=== PATIENT | male | born 1975 | race Caucasian/White ===

== ENCOUNTER 2025-01-15 19:03 | Inpatient (IN) | payer BC, SELFPAY ==
[2025-01-15 19:36] LABS: #Basophils 0.05 10x3/uL (0.0-0.2); #Eosinophils 0.17 10x3/uL (0.0-0.7); #Monocytes 0.30 10x3/uL (0.11-0.59); #Neutrophils 2.03 10x3/uL (1.40-6.50); %Basophils 1.1 % (0.0-1.0); %Eosinophils 3.8 % (0.0-10.0); %Lymphocytes 43.5 % (21.0-51.0); %Monocytes 6.6 % (0.0-10.0); %Neutrophils 44.8 % (42.0-75.0); Hematocrit 38.7 % (42.0-52.0); Hemoglobin 13.9 g/dL (14.0-18.0); Mean Corpuscular Hemoglobin 35.9 pg (27.0-31.0); Mean Corpuscular Volume 100.0 fL (78.0-98.0); Platelet Count 355 10x3/uL (130-400); Red Blood Cell (RBC) Count 3.87 mill/uL (4.70-6.10); White Blood Cell (WBC) Count 4.53 10x3/uL (4.8-10.8)
[2025-01-15 19:54] LABS: ALT (SGPT) 15 U/L (Less than 45); AST (SGOT) 11 U/L (11-34); Albumin 4.3 g/dL (3.1-4.5); Alkaline Phosphatase 76 U/L (40-110); Anion Gap 14 mmol/L (10-20); BUN (Urea Nitrogen) 13 mg/dL (8.9-20.6); Bilirubin, Total 0.8 mg/dL (0.3-1.2); CK (CPK) 130 U/L (30-200); Calc. Creatinine Clearance 0 mL/min (70-130); Calcium 9.4 mg/dL (7.8-10.44); Carbon Dioxide 27 mmol/L (22-29); Chloride 103 mmol/L (98-107); Globulin 2.9 g/dL (2.4-3.5); Glucose 104 mg/dL (70-105); Potassium 4.1 mmol/L (3.5-5.1); Sodium 140 mmol/L (136-145)
[2025-01-15 19:56] LABS: Fibrinogen 360.0 mg/dL (253-463); INR-International Normal Ratio 1.1; PTT 26.5 sec (22.9-36.1); Prothrombin Time 14.0 sec (12.0-14.7)
[2025-01-15] MEDS ORDERED: HYDROmorphone 0.5 MG/0.5 ML SYRINGE ONE ×2 (20:42→22:41)
[2025-01-15] MEDS ORDERED: Ondansetron PF 4 MG/2 ML Vial IVP PRN (23:00)
[2025-01-15] MEDS ORDERED: Acetaminophen 325 MG TAB PO PRN (23:00)
[2025-01-15] MEDS ORDERED: Calcium Carbonate 500 MG ChewTAB PO PRN (23:10)
[2025-01-15] MEDS ORDERED: Acetaminophen/Codeine 30-300mg Tablet PO PRN (23:10)
[2025-01-15] MEDS ORDERED: Senokot S 8.6-50 MG TAB PO PRN (23:10)
[2025-01-15] MEDS ORDERED: Melatonin 3 MG TAB PO PRN (23:10)
[2025-01-15] MEDS ORDERED: Electrolyte Replacement Protocol 1 EACH FS SCH (23:15)
[2025-01-16] MEDS ORDERED: HYDROmorphone 0.5 MG/0.5 ML SYRINGE SLOW IVP PRN (00:36)
[2025-01-16] MEDS ORDERED: diphenhydrAMINE 50 MG/ML VIAL IVP PRN (00:40)
[2025-01-16] MEDS: Boostrix 0.5 ML (Tdap) VIAL (>/=7 yrs of age) IM ONE (01:42)
[2025-01-16 02:07] LABS: #Basophils 0.04 10x3/uL (0.0-0.2); #Eosinophils 0.08 10x3/uL (0.0-0.7); #Monocytes 0.45 10x3/uL (0.11-0.59); #Neutrophils 4.77 10x3/uL (1.40-6.50); %Basophils 0.6 % (0.0-1.0); %Eosinophils 1.1 % (0.0-10.0); %Lymphocytes 24.4 % (21.0-51.0); %Monocytes 6.3 % (0.0-10.0); %Neutrophils 67.3 % (42.0-75.0); Hematocrit 36.6 % (42.0-52.0); Hemoglobin 12.7 g/dL (14.0-18.0); Mean Corpuscular Hemoglobin 35.5 pg (27.0-31.0); Mean Corpuscular Volume 102.2 fL (78.0-98.0); Platelet Count 323 10x3/uL (130-400); Red Blood Cell (RBC) Count 3.58 mill/uL (4.70-6.10); White Blood Cell (WBC) Count 7.09 10x3/uL (4.8-10.8)
[2025-01-16 02:12] VITALS: BMI 24.3
[2025-01-16 02:15] LABS: Fibrinogen 305.0 mg/dL (253-463)
[2025-01-16 02:16] LABS: INR-International Normal Ratio 1.2; PTT 27.8 sec (22.9-36.1); Prothrombin Time 15.1 sec (12.0-14.7)
[2025-01-16] MEDS: ANTIVENIN,CROTALIDAE (ANAVIP) 10 EACH in Sodium Chloride 0.9% 250 ML 250 ML IVPB SCH (02:24)
[2025-01-16 02:36] LABS: ALT (SGPT) 13 U/L (Less than 45); AST (SGOT) 10 U/L (11-34); Albumin 3.7 g/dL (3.1-4.5); Alkaline Phosphatase 62 U/L (40-110); Anion Gap 15 mmol/L (10-20); BUN (Urea Nitrogen) 9 mg/dL (8.9-20.6); Bilirubin, Total 1.1 mg/dL (0.3-1.2); Calc. Creatinine Clearance 104 mL/min (70-130); Calcium 8.5 mg/dL (7.8-10.44); Carbon Dioxide 21 mmol/L (22-29); Chloride 110 mmol/L (98-107); Globulin 2.4 g/dL (2.4-3.5); Glucose 94 mg/dL (70-105); Potassium 3.5 mmol/L (3.5-5.1); Sodium 142 mmol/L (136-145)
[2025-01-16] MEDS ORDERED: Enoxaparin 40 MG (0.4 mL) SYRINGE SC SCH (09:00)
[2025-01-16] MEDS: HYDROcodone/Acetaminophen 10/325 mg Tablet PO SCH (11:43)
[2025-01-16] MEDS: HYDROcodone/Acetaminophen 10/325 mg Tablet PO PRN (16:10)
[2025-01-16 16:37] VITALS: BP 99/63; TEMP 98.6
== END 2025-01-16 16:26 | disposition home or self-care (01) | DRG 918 ==
LOC: ERS 19:03 → 2NO 22:46
PROVIDERS: ADMIT Internal Medicine; ATTEND Internal Medicine
DX: T63.091A Toxic effect of venom of other snake, accidental (unintentional), initial encounter (principal); E87.20 Acidosis, unspecified; Z98.890 Other specified postprocedural states; Z88.5 Allergy status to narcotic agent; Z88.0 Allergy status to penicillin; Z88.8 Allergy status to other drugs, medicaments and biological substances; Z79.899 Other long term (current) drug therapy
CPT/HCPCS: 36415; 80053; 82550; 83605; 85025; 85384; 85610; 85730; 90715; 93005; 96365; 96375; 96376; J0841; J1171; J2270; J7050; J7120